=== PATIENT | female | born 1990 | race Caucasian/White ===

== ENCOUNTER 2021-02-13 07:54 | Day surgery (SDC) | payer BC ==
[~2021-02-13] VITALS: Ht 160 cm; Wt 77.6 kg
[~2021-02-13 07:54] MED LIST: VENL100T PO; VITAMIN TD
[2021-02-13] MEDS ORDERED: FENTANYL PF 250 MCG/5ML ONE (08:18)
[2021-02-13] MEDS ORDERED: MIDAZOLAM 1 MG/ML, 2ML ONE (08:18)
[2021-02-13] MEDS ORDERED: CHLORHEXIDINE 15 ML UDC PO ONE (08:30)
[2021-02-13] MEDS ORDERED: LACTATED RINGERS 1,000 ML IV SCH (08:30)
[2021-02-13 08:43] VITALS: BP 114/75
[2021-02-13 08:56] LABS: HCG UR SG 1.021 (1.003-1.030)
[2021-02-13] MEDS ORDERED: GENTAMICIN 80 MG/2 ML ONE (09:28)
[2021-02-13] MEDS ORDERED: FUROSEMIDE 20 MG/2 ML ONE (09:28)
[2021-02-13] MEDS ORDERED: VANCOMYCIN 500 MG ONE (09:28)
[2021-02-13] MEDS ORDERED: LIDOCAINE/PF 1%, 30ML ONE (09:28)
[2021-02-13] MEDS ORDERED: EPINEPHRINE 1 MG/ML, 1ML ONE (09:38)
[2021-02-13] MEDS ORDERED: CEFAZOLIN 1,000 MG ONE (09:50)
[2021-02-13] MEDS ORDERED: DEXAMETHASONE 4 MG/ML, 1ML ONE (09:51)
[2021-02-13] MEDS ORDERED: FLUORESCEIN SODIUM 500 MG/5 ML ONE (10:09)
[2021-02-13] MEDS ORDERED: ROCURONIUM 10MG/ML,5ML ONE ×2 (10:37)
[2021-02-13] MEDS ORDERED: PROPOFOL 10 MG/ML, 20ML ONE (10:37)
[2021-02-13] MEDS ORDERED: ONDANSETRON 2MG/ML, 2ML ONE ×2 (10:38→11:55)
[2021-02-13] MEDS ORDERED: KETOROLAC 30 MG/1 ML ONE (10:38)
[2021-02-13] MEDS ORDERED: FENTANYL PF 100 MCG/2ML ONE (11:55)
[2021-02-13] MEDS ORDERED: OXYcodone 5 MG/5 ML ORAL.SOL UDC ONE (11:56)
[2021-02-13] MEDS ORDERED: HYDROmorphone 1 MG/ML, 1ML INJ ONE ×2 (11:56→12:22)
[2021-02-13] MEDS ORDERED: PROMETHAZINE 25 MG/ML, 1ML ONE (11:57)
[2021-02-13] MEDS: FENTANYL PF 100 MCG/2ML IV PRN ×2 (11:59→12:05)
[2021-02-13] MEDS ORDERED: hydrALAzine 20 MG/ML, 1ML IV PRN (12:00)
[2021-02-13] MEDS ORDERED: MEPERIDINE/PF 25MG/0.5ML IVPush PRN (12:00)
[2021-02-13] MEDS ORDERED: LABETALOL 5MG/ML, 20ML IV PRN (12:00)
[2021-02-13] MEDS ORDERED: PROMETHAZINE 25 MG/ML, 1ML IVPush PRN (12:00)
[2021-02-13] MEDS ORDERED: ONDANSETRON 2MG/ML, 2ML IVPush PRN (12:00)
[2021-02-13] MEDS: HYDROmorphone 1 MG/ML, 1ML INJ IVPush PRN ×6 (12:10→14:11)
[2021-02-13] MEDS: OXYcodone 5 MG/5 ML ORAL.SOL UDC PO PRN ×2 (12:29→16:06)
== END 2021-02-13 16:00 | disposition home or self-care (01) ==
LOC: OUT 07:54
PROVIDERS: ATTEND Obstetrics & Gynecology Gynecology
DX: N81.4 Uterovaginal prolapse, unspecified (principal); N39.3 Stress incontinence (female) (male); N87.9 Dysplasia of cervix uteri, unspecified; Z79.899 Other long term (current) drug therapy
CPT/HCPCS: 36415; 57260; 57283; 57288; 58260; 81025; 85014; 88305; C1771; J0171; J0690; J1100; J1170; J1580; J1885; J1940; J2250; J2550; J2704; J3010; J3370; J7120; J2405

== ENCOUNTER 2021-02-13 18:33 | Emergency (ER) | payer BC ==
[~2021-02-13] VITALS: Ht 160 cm; Wt 80.0 kg
--- NOTE | 2021-02-13 18:48 | NUR ---
PT HERE FOR LOWER ABD PAIN, PT REPORTS HERNANDEZ CATH NOT DRAINING AFTER VAGINAL HYSTERECTOMY AT 1000 TODAY. PT CURRENTLY HAS LEG BAG AND IT APPEARS TO BE DRAINGING URINE INTO BAG AT THIS TIME.
[2021-02-13] MEDS ORDERED: HYDROmorphone 1 MG/ML, 1ML INJ ONE (19:00)
[2021-02-13] MEDS ORDERED: ONDANSETRON ODT 4 MG ONE (19:04)
[2021-02-13] MEDS ORDERED: HYDROmorphone 1 MG/ML, 1ML INJ IM ONE ×2 (19:30→20:00)
[2021-02-13] MEDS ORDERED: ONDANSETRON ODT 4 MG PO ONE (19:30)
--- NOTE | 2021-02-13 19:50 | NUR ---
PT C/O PAIN, REPORTS PAIN HAD SUBSIDED BUT ITS BACK AGAIN AT 9/10 ON PAIN SCALE.
--- NOTE | 2021-02-13 20:00 | NUR ---
MEDICATED PER NOV FOR PAIN CONTROL.
[2021-02-13 20:29] VITALS: BP 110/66
--- NOTE | 2021-02-13 20:30 | NUR ---
BACK TO DRIVE PT. REVIEWED DC INSTRUCTIONS WITH PT AND , BOTH VERBALIZED UNDERSTANDING.
== END 2021-02-13 20:43 | disposition home or self-care (01) ==
LOC: ED 19:00
DX: R33.9 Retention of urine, unspecified (principal); N99.89 Other postprocedural complications and disorders of genitourinary system; F17.210 Nicotine dependence, cigarettes, uncomplicated
CPT/HCPCS: 96372; 99284; J1170; Q0162